=== PATIENT | female | born 1995 | race Two or more races ===

== ENCOUNTER 2023-12-18 22:16 | Outpatient (CLI) | payer OTHER ==
[~2023-12-18] VITALS: Ht 154.9 cm; Wt 53.5 kg
[~2023-12-18 22:16] MED LIST: CEFUROXIME500 MG PO; PRENATAL + DHA1 EAC1 PO
[2023-12-18] MEDS ORDERED: RINGERS SOLUTION,LACTATED 1,000 ML IV SCH (22:30)
[2023-12-18 23:12] LABS: URINE APPEARANCE Clear; URINE BILIRRUBIN Negative (NEGATIVE); URINE BLOOD Negative; URINE COLOR Yellow; URINE GLUCOSE Negative (NEGATIVE); URINE LEUKOCYTE Small; URINE NITRATE Negative; URINE PROTEIN Negative (NEGATIVE); URINE UROBILINOGEN 0.2 E.U./dl
[2023-12-18 23:16] LABS: URINE BACTERIA 6231.5 uL (0.0-1933); URINE EPITHELIAL CELLS 45.7 uL (0.0-38.8); URINE RBC 9.1 uL (0.0-20.8); URINE WBC 96.9 uL (0.0-23.2)
[2023-12-18 23:18] LABS: HEMATOCRIT 33.9 % (36.0-45.00); HEMOGLOBIN 11.4 g/dL (12.0-15.00); MEAN CELL VOLUME 85.8 fL (80.00-100.00); MEAN CORPUSCULAR HEMOGLOBIN 28.9 pg (27.00-32.0); MEAN CORPUSCULAR HGB CONC 33.7 g/dl (32.0-36.0); PLATELET COUNT 315 K/uL (150-450); RED BLOOD COUNT 3.95 M/uL (4.00-6.00); RED CELL DISTRIBUTION WIDTH 14.3 % (11.5-14.5)
[2023-12-18 23:27] LABS: CALCIUM 9.3 mg/dL (8.5-10.1); CREATININE SERUM 0.54 mg/dL (0.55-1.02); GFR 135.42; POTASSIUM 3.69 mEq/L (3.5-5.1)
[2023-12-19 08:40] LABS: HEMATOCRIT 32.9 % (36.0-45.00); MEAN CELL VOLUME 86.6 fL (80.00-100.00); MEAN CORPUSCULAR HEMOGLOBIN 28.9 pg (27.00-32.0); MEAN CORPUSCULAR HGB CONC 33.4 g/dl (32.0-36.0); PLATELET COUNT 282 K/uL (150-450); RED CELL DISTRIBUTION WIDTH 14.1 % (11.5-14.5)
== END 2023-12-19 15:55 | disposition home or self-care (01) ==
LOC: OBS/DEL 22:16
PROVIDERS: Obstetrics & Gynecology; ATTEND Specialist
DX: O26.892 Other specified pregnancy related conditions, second trimester (principal); M79.89 Other specified soft tissue disorders; Z3A.19 19 weeks gestation of pregnancy; O60.00 Preterm labor without delivery, unspecified trimester

== ENCOUNTER 2024-03-12 10:27 | Outpatient (CLI) | payer OTHER | END 2024-03-12 10:31 | disposition home or self-care (01) | LOC: PRENATAL 10:27 | PROVIDERS: ATTEND Obstetrics & Gynecology Maternal & Fetal Medicine | DX: O26.849 Uterine size-date discrepancy, unspecified trimester (principal); O36.8199 Decreased fetal movements, unspecified trimester, other fetus; Z3A.32 32 weeks gestation of pregnancy ==

== ENCOUNTER 2024-04-05 05:32 | Inpatient (IN) | payer OTHER ==
[~2024-04-05] VITALS: Ht 154.9 cm; Wt 2.3 kg
[2024-04-05 05:00] VITALS: BP 110/77
[2024-04-05] MEDS ORDERED: AMPICILLIN SODIUM 2,000 MG VIAL IV ONE (05:45)
[2024-04-05] MEDS ORDERED: RINGERS SOLUTION,LACTATED 1,000 ML IV SCH ×3 (05:45→06:00)
[2024-04-05 06:07] VITALS: BP 110/77
[2024-04-05] MEDS ORDERED: OXYTOCIN 500 ML IV SCH (06:45)
[2024-04-05 07:05] LABS: HEMATOCRIT 39.3 % (36.0-45.00); HEMOGLOBIN 13.1 g/dL (12.0-15.00); MEAN CELL VOLUME 84.9 fL (80.00-100.00); MEAN CORPUSCULAR HEMOGLOBIN 28.3 pg (27.00-32.0); MEAN CORPUSCULAR HGB CONC 33.3 g/dl (32.0-36.0); PLATELET COUNT 245 K/uL (150-450); RED BLOOD COUNT 4.63 M/uL (4.00-6.00); RED CELL DISTRIBUTION WIDTH 15.8 % (11.5-14.5)
[2024-04-05 07:09] LABS: ALBUMIN 2.8 gm/dL (3.4-5.0); BILIRUBIN TOTAL 0.29 mg/dL (0.3-1.2); CALCIUM 9.3 mg/dL (8.5-10.1); CREATININE SERUM 0.55 mg/dL (0.55-1.02); GFR 132.59; GLOBULINA 3.3 G/DL (2.4-3.5); INR < 0.93; PARTIAL THROMBOPLASTIN TIME 25.9 SECONDS (22.0-34.0); POTASSIUM 4.68 mEq/L (3.5-5.1); PROTHROMBIN TIME 9.8 SECONDS (9.0-11.5); TOTAL PROTEIN 6.1 gm/dL (6.4-8.2)
[2024-04-05 07:15] VITALS: BP 122/79
[2024-04-05] MEDS ORDERED: AMPICILLIN SODIUM 1,000 MG VIAL IV SCH (09:00)
[2024-04-05 12:15] VITALS: BP 120/75
[2024-04-05] MEDS ORDERED: OXYTOCIN 10 UNITS/ML VIAL IV ONE (15:00)
[2024-04-05] MEDS ORDERED: ERYTHROMYCIN BASE OPHT 1GM EACH TUBE OP ONE (15:00)
[2024-04-05] MEDS ORDERED: PROMETHAZINE HCL 50 MG/ML AMPUL IM PRN (15:45)
[2024-04-05] MEDS ORDERED: MEPERIDINE HCL/PF 50 MG/ML VIAL IM PRN (15:45)
[2024-04-05] MEDS ORDERED: MORPHINE SULFATE 4 MG/ML VIAL IV ONE ×2 (17:25→19:30)
[2024-04-05] MEDS ORDERED: CEFAZOLIN SODIUM 1,000 MG VIAL IV SCH (20:00)
[2024-04-05] MEDS ORDERED: ONDANSETRON HCL 2 MG/ML VIAL IV ONE (20:45)
[2024-04-05] MEDS ORDERED: MEPERIDINE HCL 25 MG/ML AMPUL IV ONE (20:45)
[2024-04-05 21:54] VITALS: BP 110/71
[2024-04-05 23:33] LABS: HEMATOCRIT 35.9 % (36.0-45.00); MEAN CELL VOLUME 86.7 fL (80.00-100.00); MEAN CORPUSCULAR HGB CONC 33.4 g/dl (32.0-36.0); PLATELET COUNT 213 K/uL (150-450); RED BLOOD COUNT 4.14 M/uL (4.00-6.00); RED CELL DISTRIBUTION WIDTH 15.6 % (11.5-14.5)
[2024-04-06 01:11] VITALS: BP 98/60
[2024-04-06] MEDS ORDERED: ACETAMINOPHEN 500 MG GEL..CAP PO PRN (07:00)
[2024-04-06] MEDS ORDERED: OxyCODONE HCL/APAP UD (PERCOCET) PO PRN (07:00)
[2024-04-06 08:35] VITALS: BP 102/70
[2024-04-06 16:00] VITALS: BP 107/75
[2024-04-07 00:47] VITALS: BP 110/76
[2024-04-07 08:22] VITALS: BP 110/64
[2024-04-07 15:50] VITALS: BP 120/85
[2024-04-08 00:58] VITALS: BP 107/74
[2024-04-08 08:00] VITALS: BP 101/72
== END 2024-04-08 12:38 | disposition home or self-care (01) | DRG 786 ==
LOC: LDR 05:32 → OB/GYN 05:32
PROVIDERS: ADMIT Specialist; ATTEND Specialist
PROC: 4A1HXCZ Monitoring of Products of Conception, Cardiac Rate, External Approach (ICD-10-PCS; 2024-04-05)
PROC: 10D00Z1 Extraction of Products of Conception, Low, Open Approach (ICD-10-PCS; principal; 2024-04-05 14:30)
DX: O42.013 Preterm premature rupture of membranes, onset of labor within 24 hours of rupture, third trimester (principal); O60.14X0 Preterm labor third trimester with preterm delivery third trimester, not applicable or unspecified; O33.8 Maternal care for disproportion of other origin; Z3A.35 35 weeks gestation of pregnancy; Z37.0 Single live birth; Z20.822 Contact with and (suspected) exposure to COVID-19

== ENCOUNTER 2024-12-08 22:55 | Emergency (ER) | payer OTHER ==
[~2024-12-08] VITALS: Ht 154.9 cm; Wt 52.2 kg
[2024-12-09] MEDS ORDERED: DEXAMETHASONE SODIUM PHOSPHATE 4 MG/ML VIAL IM ONE (00:45)
[2024-12-09] MEDS ORDERED: ACETAMINOPHEN 500 MG GEL..CAP PO ONE (00:45)
[2024-12-09] MEDS ORDERED: GUAIFENESIN/DEXTROMETHORPHAN 100MG/10ML BLIST.PACK PO ONE (00:45)
[2024-12-09] MEDS ORDERED: PROAIR RESPICL90 MCG IH (00:49)
[2024-12-09] MEDS ORDERED: TUSNEL LIQUID178 ML PO (00:49)
[2024-12-09] MEDS ORDERED: DOLOGEN CAPLET1 EACH PO (00:49)
== END 2024-12-09 01:06 | disposition home or self-care (01) ==
LOC: ER 23:15
DX: U07.1 COVID-19 (principal)